=== PATIENT | male | born 1965 | race Caucasian/White ===

== ENCOUNTER 2019-04-06 03:04 | Emergency (ER) | payer MEDICAID ==
[~2019-04-06] VITALS: Ht 157.5 cm; Wt 68.0 kg
[~2019-04-06 03:04] MED LIST: FLO0.4C PO
[2019-04-06 03:07] VITALS: BP 152/100
[2019-04-06] MEDS ORDERED: proparacaine 0.5% ophthalmic drops 15ml RIGHTEYE ONE (03:35)
[2019-04-06] MEDS ORDERED: HYDR-3965 PO (03:45)
[2019-04-06] MEDS ORDERED: TETanus/Pertussis (Acell)/Diphther VAC/PF (Tdap-Adult) 0.5ml syringe IMVAC ONE (03:45)
[2019-04-06] MEDS ORDERED: erythromycin ophthalmic ointment 1gm tube RIGHTEYE ONE (03:45)
== END 2019-04-06 04:07 | disposition home or self-care (01) ==
LOC: ER 03:05
DX: S05.01XA Injury of conjunctiva and corneal abrasion without foreign body, right eye, initial encounter (principal); F17.200 Nicotine dependence, unspecified, uncomplicated; F12.90 Cannabis use, unspecified, uncomplicated; Z79.899 Other long term (current) drug therapy; Z98.890 Other specified postprocedural states; W22.8XXA Striking against or struck by other objects, initial encounter; Y93.89 Activity, other specified; Y92.89 Other specified places as the place of occurrence of the external cause; Y99.8 Other external cause status
CPT/HCPCS: 90471; 90715; 99283

== ENCOUNTER 2020-04-30 16:38 | Emergency (ER) | payer MEDICAID ==
[~2020-04-30] VITALS: Ht 157.5 cm; Wt 74.0 kg
[2020-04-30] MEDS ORDERED: INDO50CA96 PO (18:00)
[2020-04-30 18:14] VITALS: BP 149/97
== END 2020-04-30 18:17 | disposition home or self-care (01) ==
LOC: ER 16:38
DX: M10.9 Gout, unspecified (principal); F12.90 Cannabis use, unspecified, uncomplicated; Z71.89 Other specified counseling; Z85.9 Personal history of malignant neoplasm, unspecified; Z79.899 Other long term (current) drug therapy
CPT/HCPCS: 73130; 99283; 99291

== ENCOUNTER 2020-08-31 12:42 | Emergency (ER) | payer MEDICAID ==
[~2020-08-31] VITALS: Ht 157.5 cm; Wt 68.2 kg
[~2020-08-31 12:42] MED LIST changes: +INDO50CA96 PO
[2020-08-31 13:21] VITALS: BP 152/87
== END 2020-08-31 15:09 | disposition left against medical advice (07) ==
LOC: ER 12:43
DX: R21 Rash and other nonspecific skin eruption (principal); Z53.21 Procedure and treatment not carried out due to patient leaving prior to being seen by health care provider

== ENCOUNTER 2021-06-05 20:39 | Emergency (ER) | payer MEDICAID ==
[~2021-06-05] VITALS: Ht 157.5 cm; Wt 78.1 kg
[2021-06-05] MEDS ORDERED: predniSONE 20 mg tablet PO ONE (21:35)
[2021-06-05] MEDS ORDERED: naproxen 500mg tablet PO ONE (21:35)
[2021-06-05] MEDS ORDERED: HYDROcodone/acetaminophen 5mg/325mg tablet PO ONE (21:35)
[2021-06-05] MEDS ORDERED: INDO-12 PO (21:37)
[2021-06-05] MEDS ORDERED: METH4TAB3 PO (21:37)
[2021-06-05 22:14] VITALS: BP 150/78
== END 2021-06-05 22:16 | disposition home or self-care (01) ==
LOC: ER 20:42
DX: M13.88 Other specified arthritis, other site (principal); M79.644 Pain in right finger(s); F12.10 Cannabis abuse, uncomplicated
CPT/HCPCS: 99284; J7512

== ENCOUNTER 2021-08-05 11:33 | Emergency (ER) | payer MEDICAID ==
[~2021-08-05] VITALS: Ht 157.5 cm; Wt 77.3 kg
[~2021-08-05 11:33] MED LIST changes: +INDO-12 PO; +METH4TAB3 PO
[2021-08-05 11:43] VITALS: BP 165/100
[2021-08-05] MEDS ORDERED: SULF1TAB49 PO (20:57)
== END 2021-08-05 13:12 | disposition left against medical advice (07) ==
LOC: ER 11:34
DX: H57.13 Ocular pain, bilateral (principal); Z53.21 Procedure and treatment not carried out due to patient leaving prior to being seen by health care provider

== ENCOUNTER 2021-08-05 19:49 | Emergency (ER) | payer MEDICAID ==
[~2021-08-05] VITALS: Ht 157.5 cm; Wt 77.3 kg
[2021-08-05 19:58] VITALS: BP 153/95
--- NOTE | 2021-08-05 20:35 | NUR ---
RT EYE 20/40 LT EYE 20/50 BOTH 20/40
[2021-08-05] MEDS ORDERED: SULF1TAB49 PO (20:57)
[2021-08-05] MEDS ORDERED: sulfamethoxazole/trimethoprim DS (800/160mg) tablet PO ONE (21:00)
--- NOTE | 2021-08-05 21:12 | NUR ---
PO MED GIVEN
== END 2021-08-05 21:12 | disposition home or self-care (01) ==
LOC: ER 19:49
DX: H00.015 Hordeolum externum left lower eyelid (principal); M10.9 Gout, unspecified; F12.90 Cannabis use, unspecified, uncomplicated; Z72.89 Other problems related to lifestyle; Z79.899 Other long term (current) drug therapy
CPT/HCPCS: 99283

== ENCOUNTER 2021-12-05 07:23 | Emergency (ER) | payer MEDICAID ==
[~2021-12-05] VITALS: Ht 157.5 cm; Wt 77.3 kg
[2021-12-05] MEDS ORDERED: LIDOcaine 1% W/epiNEPHrine 1:100,000 20ml vial SQ ONE (08:50)
[2021-12-05] MEDS: LIDOcaine 1% w/EPI 1:100,000 30ml vial (MDV) SQ ONE (09:41)
[2021-12-05 10:03] LABS: BASOPHILS # (AUTO) 0.1 X10'3 (0-0.2); BASOPHILS % (AUTO) 0.8 % (0-1); EOSINOPHILS # (AUTO) 0.5 X10'3 (0-0.9); EOSINOPHILS % (AUTO) 3.6 % (0-6); HEMOGLOBIN 13.3 g/dl (14.0-17.9); LYMPHOCYTES # (AUTO) 1.8 X10'3 (1.1-4.8); LYMPHOCYTES % (AUTO) 13.1 % (21-51); MEAN CORPUSCULAR HEMOGLOBIN 30.6 PG (27.0-31.0); MEAN CORPUSCULAR HGB CONC 34.2 g/dL (33.0-36.5); MEAN CORPUSCULAR VOLUME 89.7 FL (78-98); MEAN PLATELET VOLUME 8.4 FL (7.4-10.4); MONOCYTES # (AUTO) 1.4 X10'3 (0-0.9); NEUTROPHILS # (AUTO) 10.1 X10'3 (1.8-7.7); NEUTROPHILS % (AUTO) 72.5 % (42-75); PLATELET COUNT 370 X10'3 (140-440); RED BLOOD COUNT 4.35 X10'6 (4.70-6.10); RED CELL DISTRIBUTION WIDTH 13.7 % (11.5-14.5); WHITE BLOOD COUNT 13.9 X10'3 (4.5-11.0)
[2021-12-05 10:11] LABS: ALANINE AMINOTRANSFERASE 65 U/L (12-78); ALBUMIN 3.5 G/DL (3.4-5.0); ALBUMIN/GLOBULIN RATIO 0.9 (1.1-1.5); ALKALINE PHOSPHATASE 138 IU/L (46-116); ANION GAP 7 (8-16); ASPARTATE AMINO TRANSFERASE 37 U/L (10-37); BILIRUBIN,TOTAL 0.2 MG/DL (0.1-1.0); BLOOD UREA NITROGEN 24 MG/DL (7-18); BUN/CREATININE RATIO 28.2 (5.4-32.0); CALCIUM 8.9 MG/DL (8.5-10.1); CHLORIDE 101 MMOL/L (99-107); CREATININE 0.85 MG/DL (0.60-1.10); GLUCOSE 160 MG/DL (70-104); POTASSIUM 3.8 MMOL/L (3.5-5.1); SODIUM 139 MMOL/L (135-145); TOTAL CARBON DIOXIDE 30.8 MMOL/L (24-32); TOTAL PROTEIN 7.6 G/DL (6.4-8.2); eGFR > 90 ML/MIN
[2021-12-05] MEDS ORDERED: SULF1TAB49 PO (10:19)
[2021-12-05] MEDS: sulfamethoxazole/trimethoprim DS (800/160mg) tablet PO ONE (10:37)
--- NOTE | 2021-12-05 10:37 | NUR ---
pt left the ER in hurry ,want to leave,forgot to give the oral antibiotic to the pt ,called daughter and informed her and also called the patient left the message ,pt didn't called us back ,spoke to pt's daughter regarding pt pending abx order,as per daughter keely,don't worry "he will get medication filled from pharmacy".
[2021-12-05 10:42] VITALS: BP 159/99
== END 2021-12-05 10:30 | disposition home or self-care (01) ==
LOC: ER 07:23
DX: L02.31 Cutaneous abscess of buttock (principal)
CPT/HCPCS: 10060; 36415; 80053; 85025; 99284; A6266; J7030; A6258; A6449